=== PATIENT | female | born 1960 | race Caucasian/White ===

== ENCOUNTER 2019-04-06 09:11 | Inpatient (IN) | payer MEDICAID ==
[2019-04-06] VITALS (7 sets, daily range): BP systolic 137–194; BP diastolic 86–98; Ht 170.2 cm; Wt 111.8 kg
[~2019-04-06] VITALS: Ht 170.2 cm; Wt 111.8 kg
--- NOTE | 2019-04-06 07:30 | NUR ---
A/A/OX4. WT BY BED SCALE IS 391.4. DENIES ANY PAIN OR DISCOMFORT AT THIS TIME AND NO REQUESTS VOICED. ASSESSMENT COMPLETED AND WILL CONTINUE POC. CALL LIGHT IN REACH.
[2019-04-06] MEDS ORDERED: LISINOPRIL40 MG PO (09:28)
[2019-04-06] MEDS ORDERED: GLUCOTROL ER2.5 MG PO (09:28)
[2019-04-06] MEDS ORDERED: LORSARTIN (09:29)
[2019-04-06] MEDS ORDERED: CLARITIN 10 MG10 MG PO (09:30)
[2019-04-06] MEDS ORDERED: TENORMIN25 MG PO (09:30)
[2019-04-06] MEDS ORDERED: ZOLOFT100 MG PO (09:30)
--- NOTE | 2019-04-06 09:55 | NUR ---
MAUAL BP WITH THIGH CUFF= 198/92 DR GATICA NOTIFIED
[2019-04-06 10:08] LABS: BASOPHILS 1.1 % (0-2); EOSINOPHILS 4.2 % (0-7); HEMATOCRIT 35.2 % (36.0-48.0); HEMOGLOBIN 11.3 g/dL (12-16); IMMATURE GRANULOCYTES 0.6 % (0-5); LYMPHOCYTES 23.5 % (15-50); MCH 29.8 pg (26.0-34.0); MCHC 32.1 g/dL (31.0-37.0); MCV 92.9 fL (80.0-100.0); MEAN PLATELET VOLUME 10.4 fL (7.4-10.4); MONOCYTES 10.8 % (2-11); NEUTROPHILS 59.8 % (40-80); PLATELET COUNT 270 10x3/uL (130-400); RBC 3.79 10x6/uL (4.00-5.40); RDW 13.7 % (11.5-14.5); WBC 7.1 10x3/uL (4.8-10.8)
--- NOTE | 2019-04-06 10:19 | NUR ---
BP READINGS: R ARM MANUAL CUFF= 198/92 L ARM MANUAL CUFF= 194/110 L ARM AUTO CUFF= 215/101 UNABLE TO OBTAIN AUTO READING ON RIGHT ARM
[2019-04-06 10:21] LABS: APTT 28.4 SECONDS (22.8-39.4); INR 1.01 (0.85-1.17); PROTIME 12.8 SECONDS (11.6-15.0)
[2019-04-06 10:30] LABS: ALBUMIN 3.7 g/dL (3.4-5.0); ALKALINE PHOSPHATASE 88 U/L (46-116); ALT (SGPT) 35 U/L (10-68); BILIRUBIN - TOTAL 0.53 mg/dL (0.2-1.3); CALC OSMOLALITY 279 mosm/kg (275-300); CALCIUM 9.4 mg/dL (8.5-10.1); CHLORIDE - SERUM 106 mmol/L (98-107); CREATININE - SERUM 0.9 mg/dL (0.6-1.3); GLUCOSE 101 mg/dL (74-106); POTASSIUM - SERUM 3.4 mmol/L (3.5-5.1); PROTEIN - SERUM 7.4 g/dL (6.4-8.2); SODIUM 141 mmol/L (136-145); UREA NITROGEN 11 mg/dL (7-18); eGFR NON AFRICAN AMERICAN 68 mL/min (90-120)
[2019-04-06 10:37] LABS: CKMB 0.9 U/L (0.0-3.6); CREATINE KINASE 84 UL (21-215); MAGNESIUM - SERUM 2.1 mg/dL (1.8-2.4)
[2019-04-06 10:38] LABS: TROPONIN-I < 0.017 ng/mL (0.000-0.060)
--- NOTE | 2019-04-06 11:07 | NUR ---
PT RESTING UPRIGHT IN BED. BP IMPROVED. PT REPORTS EARLY RESOLVED. DR GATICA NOTIFIED
--- NOTE | 2019-04-06 11:57 | NUR ---
REPORT CALLED TO GERALD CASTELLANOS BY SBAR FORMAT
--- NOTE | 2019-04-06 12:15 | NUR ---
TO ROOM #2102 VIA W/C, CONDITION STABLE. SL INTACT RAC
[2019-04-06] MEDS ORDERED: ZIAC 10-6.25 MG1 TAB PO (12:45)
[2019-04-06] MEDS ORDERED: COZAAR100 MG PO (12:46)
[2019-04-06 15:24] LABS: % SATURATION 22 % (15-55); IRON 54 ug/dl (35-150); TOTAL IRON BIND CAPACITY 241 ug/dl (260-445); UNSAT IRON BIND CAPACITY 187 ug/dl (150-375)
[2019-04-06 16:17] LABS: THYROID STIMULATING HORMONE 1.57 uIU/mL (0.36-3.74)
--- NOTE | 2019-04-06 18:12 | NUR ---
ASSESSMENT COMPLETE PT IS AAOX4 RESP UNLABORED SKIN W/D DENIES ANY PAIN OR NEEDS AT THIS TIME
[2019-04-06 18:21] LABS: CKMB 0.7 U/L (0.0-3.6); CREATINE KINASE 78 UL (21-215)
[2019-04-06 18:24] LABS: TROPONIN-I < 0.017 ng/mL (0.000-0.060)
--- NOTE | 2019-04-06 19:05 | NUR ---
AWAKE AND ALERT CO HEADACHE AT THIS TIME LCTA SKIN WARM AND DRY PT UP ON BEDSIDE BED IS LOW AND LOCKED CALL LIGHT IS IN REACH
[2019-04-07 01:22] LABS: APPEARANCE HAZY (CLEAR); BACTERIA FEW /hpf (NONE SEEN); BILIRUBIN NEGATIVE (NEGATIVE); COLOR YELLOW (YELLOW); EPITHELIAL CELLS 0-5 /hpf (0-5); GLUCOSE NEGATIVE (NEGATIVE); KETONE NEGATIVE (NEGATIVE); NITRITE NEGATIVE (NEGATIVE); PROTEIN NEGATIVE (NEGATIVE); RED CELLS - URINE NONE SEEN /hpf (0-5); SPECIFIC GRAVITY 1.015 (1.005-1.020); UROBILINOGEN NORMAL (NORMAL)
[2019-04-07 03:18] LABS: BASOPHILS 0.7 % (0-2); EOSINOPHILS 3.4 % (0-7); HEMATOCRIT 33.4 % (36.0-48.0); HEMOGLOBIN 10.8 g/dL (12-16); IMMATURE GRANULOCYTES 0.5 % (0-5); LYMPHOCYTES 23.9 % (15-50); MCH 29.7 pg (26.0-34.0); MCHC 32.3 g/dL (31.0-37.0); MCV 91.8 fL (80.0-100.0); MEAN PLATELET VOLUME 11.4 fL (7.4-10.4); MONOCYTES 8.6 % (2-11); NEUTROPHILS 62.9 % (40-80); PLATELET COUNT 239 10x3/uL (130-400); RBC 3.64 10x6/uL (4.00-5.40); RDW 13.8 % (11.5-14.5)
[2019-04-07 03:21] LABS: WBC 9.1 10x3/uL (4.8-10.8)
[2019-04-07 03:37] LABS: ALBUMIN 3.6 g/dL (3.4-5.0); ANION GAP 13.1 mmol/L (8-16); BILIRUBIN - TOTAL 0.43 mg/dL (0.2-1.3); CALCIUM 9.3 mg/dL (8.5-10.1); CARBON DIOXIDE 25.4 mmol/L (21.0-32.0); POTASSIUM - SERUM 3.5 mmol/L (3.5-5.1); PROTEIN - SERUM 7.2 g/dL (6.4-8.2)
[2019-04-07 03:49] LABS: CKMB 0.6 U/L (0.0-3.6); CREATINE KINASE 89 UL (21-215)
[2019-04-07 03:55] LABS: TROPONIN-I < 0.017 ng/mL (0.000-0.060)
[2019-04-07 04:03] VITALS: BP 184/100
--- NOTE | 2019-04-07 04:39 | NUR ---
PT BP 184/100 ZION NOTIFIED AND NEW ORDERS RECIEVED AND GIVEN
--- NOTE | 2019-04-07 05:34 | NUR ---
BP NOW 142/91
[2019-04-07 07:20] LABS: FOLATE (FOLIC ACID) - SERUM 5.1 ng/mL (>3.0)
--- NOTE | 2019-04-07 07:30 | NUR ---
PT RESTING IN BED, SHIFT ASSESSMENT PERFORMED. DENIES ANY PAIN AT THIS TIME, DENIES ANY NEEDS AT THIS TIME, WILL CONT TO FOLLOW POC
[2019-04-07 08:54] VITALS: BP 139/84
[2019-04-07 12:12] VITALS: BP 182/85
--- NOTE | 2019-04-07 12:20 | NUR ---
PT SITTING IN BED EATING LUNCH, DENIES ANY NEEDS AT THIS TIME, WILL CONT TO FOLLOW POC
[2019-04-07] MEDS ORDERED: CHLORTHALIDONE25 MG PO (13:30)
[2019-04-07] MEDS ORDERED: LISINOPRIL40 MG PO (13:30)
[2019-04-07] MEDS ORDERED: PROTONIX40 MG PO (13:30)
[2019-04-07] MEDS ORDERED: HYDRALAZINE HCL50 MG PO (13:30)
[2019-04-07] MEDS ORDERED: NORVASC10 MG PO (13:30)
--- NOTE | 2019-04-07 15:30 | NUR ---
PRESCRIPTIONS CALLED INTO [phone]) SPOKE WITH EDGAR MONROE.
--- NOTE | 2019-04-07 16:58 | NUR ---
DISCHARGE INSTRUCTIONS REVIEWED WITH PT AND ALL QUESTIONS ANSWERED. PIV REMOVED WITH CATHETER TIP INTACT. ASSISTED PT TO FRONT OF HOSPTIAL VIA WHEELCHAIR.
--- NOTE | 2019-04-07 17:34 | MORECARE ---
CASE MANAGEMENT DISCHARGE SUMMARY PATIENT: MER LAGUNAS UNIT: [id number] ADM DATE: 04/06/19 AGE: 58 : 58 SEX: F ROOM/BED: D.2102 AUTHOR: SAMANTHADOC PHYSICIAN: REFERRING PHYSICIAN: CLARY VERDUZCO MD DATE OF SERVICE: 04/07/19 Discharge Plan Patient Name: MER LAGUNAS Facility: [facility]:[place] : 1960 Planned Disposition: Home Anticipated Discharge Date: 04/07/19 Discharge Date: 04/07/2019 Expected LOS: 1 Initial Reviewer: [email or web address] Initial Review Date: 04/07/2019 Generated: 04/07/19 6:33 pm Comments DCP- Discharge Planning Updated by [email or web address]: Danny Upton on 04/07/19 4:[address] Patient Name: MER LAGUNAS Admission Status: ER Accout number: [id number] Admission Date: 04-06-2019 : 1960 Admission Diagnosis:ESSENTIAL (PRIMARY) HYPERTENSION Attending: CLARY VERDUZCO Current LOS: 1 Anticipated DC Date: 04-07-2019 Planned Disposition: Home Primary Insurance: [place]ICAID [place] Discharge Planning Comments: CM MET WITH PT IN ROOM TO DISCUSS DISCHARGE PLANNING AND NEEDS. PT REPORTS LIVING AT HOME INDEPENDENTLY AND ALONE. PT HAS WALKER WITH NO MEDICAL EQUIPMENT PROVIDER PREFERNCE AND NO OUTSIDE SERVICES ASSISTING IN THE HOME. CM DISCUSSED AVAILABILITY OF HOME HEALTH, REHAB SERVICES AND MEDICAL EQUIPMENT. PT DENIES DISCHARGE NEEDS, REPORTS SHE IS DRIVING HERSELF HOME TODAY. CUSTOMER CONTACT REPRESENTATIVE NURSE NOTIFIED. Stud Sheep Farmer: Danny Upton DCPIA - Discharge Planning Initial Assessment Updated by [email or web address]: Danny Upton on 04/07/19 5:31 pm * Is the patient Alert and Oriented? Yes * How many steps to enter\exit or inside your home? NONE * PCP [facility] [place] * Pharmacy [facility] * Preadmission Environment Home Alone * ADLs Independent * Equipment Walker * Other Equipment NO MEDICAL EQUIPMENT PROVIDER PREFERNECE * List name and contact numbers for known caregivers / representatives who currently or will assist patient after discharge: JANIS ROGEL, SISTER, * Verbal permission to speak to the caregivers and representatives has been obtained from the patient. N/A * Community resources currently utilized None * Please name any agencies selected above. NONE * Additional services required to return to the preadmission environment? No * Can the patient safely return to the preadmission environment? Yes * Has this patient been hospitalized within the prior 30 days at any hospital? No Patient Name: MER LAGUNAS Page [id number] at 1734 All edits/amendments must be made on the electronic document DICTATION DATE: 04/07/191732 SKATING RINK ICE MAKER: JUSTIN 04/07/191732 RPT#: [id number] DC DATE:04/07/19 STATUS: DIS IN [facility] [address] [place] [address] END OF REPORT
--- NOTE | 2019-04-08 12:43 | NUR ---
PT CALLED AND REPORTED SHE DID NOT GET CORRECT PRESCRIPTIONS CALLED IN YESTERDAY. DID NOT GET ATENOLOL, CORRECT DOSAGE OF GLIPIZIDE OR LISINOPRIL. RX'S FOR ONE MONTH SUPPLY ISSUED PER PT'S DISCHARGE MEDICATION LIST. CALLED TO [facility], [phone], SPOKE WITH EDGAR PHARMACIST.
== END 2019-04-07 16:59 | disposition home or self-care (01) | DRG 305 ==
LOC: D.ER 09:11 → D.M2 11:36 → D.EDHOLD 11:36 → D.M2 11:40
PROVIDERS: Family Medicine; ADMIT Internal Medicine Nephrology; ATTEND Internal Medicine Nephrology
DX: I16.0 Hypertensive urgency (principal); E11.9 Type 2 diabetes mellitus without complications; D64.9 Anemia, unspecified; E87.6 Hypokalemia; F32.9 Major depressive disorder, single episode, unspecified